=== PATIENT | female | born 1965 | race Two or more races ===

== ENCOUNTER 2018-03-11 20:59 | Emergency (ER) | payer OTHER ==
[~2018-03-11] VITALS: Ht 167.6 cm; Wt 65.8 kg
[~2018-03-11 20:59] MED LIST: AMBIEN5 MG; BENADRYL25 MG PO; CLARITIN10 M1; EFFEXOR XR150 MG; KEFLEX500 MG; MEDROLPACK PO; PNEU16DI2; TENORMIN25 MG PO; XANAX XR0.5 MG PO; ZOLOFT50 MG PO; ZYRTEC10 M3 PO
== END 2018-03-11 22:52 | disposition home or self-care (01) ==
LOC: ER 20:59
DX: I16.0 Hypertensive urgency (principal); I10 Essential (primary) hypertension

== ENCOUNTER 2018-06-16 10:38 | Emergency (ER) | payer OTHER ==
[~2018-06-16] VITALS: Ht 167.6 cm; Wt 74.8 kg
[2018-06-16] MEDS ORDERED: TRINTELLIX10 MG (11:52)
== END 2018-06-16 15:02 | disposition home or self-care (01) ==
LOC: ER 10:38
DX: R42 Dizziness and giddiness (principal); M54.2 Cervicalgia

== ENCOUNTER 2024-04-01 05:48 | Day surgery (SDC) | payer OTHER ==
[2024-03-26 09:40] VITALS: BP 129/76
[2024-03-26 09:41] LABS: HEMATOCRIT 43.6 % (36.0-45.00); HEMOGLOBIN 14.6 g/dL (12.0-15.00); MEAN CELL VOLUME 91.4 fL (80.00-100.00); MEAN CORPUSCULAR HEMOGLOBIN 30.5 pg (27.00-32.0); MEAN CORPUSCULAR HGB CONC 33.4 g/dl (32.0-36.0); PLATELET COUNT 298 K/uL (150-450); RED BLOOD COUNT 4.77 M/uL (4.00-6.00); RED CELL DISTRIBUTION WIDTH 12.5 % (11.5-14.5)
[2024-03-26 09:42] LABS: URINE APPEARANCE Clear; URINE BILIRRUBIN Negative (NEGATIVE); URINE BLOOD Negative; URINE COLOR Yellow; URINE GLUCOSE Negative (NEGATIVE); URINE KETONE Negative (NEGATIVE); URINE LEUKOCYTE Negative; URINE NITRATE Negative; URINE PROTEIN Negative (NEGATIVE); URINE UROBILINOGEN 0.2 E.U./dl
[2024-03-26 09:43] LABS: URINE BACTERIA 662.7 uL (0.0-1933); URINE EPITHELIAL CELLS 3.2 uL (0.0-38.8); URINE RBC 11.9 uL (0.0-20.8); URINE WBC 5.5 uL (0.0-23.2)
[2024-03-26 10:00] LABS: PARTIAL THROMBOPLASTIN TIME 25.6 SECONDS (22.0-34.0); PROTHROMBIN TIME 10.9 SECONDS (9.0-11.5)
[2024-03-26 10:31] LABS: ALBUMIN 3.9 gm/dL (3.4-5.0); BILIRUBIN TOTAL 0.66 mg/dL (0.3-1.2); CALCIUM 9.5 mg/dL (8.5-10.1); CREATININE SERUM 0.58 mg/dL (0.55-1.02); GFR 107.54; GLOBULINA 3.2 G/DL (2.4-3.5); POTASSIUM 4.39 mEq/L (3.5-5.1); TOTAL PROTEIN 7.1 gm/dL (6.4-8.2)
[~2024-04-01] VITALS: Ht 167.6 cm; Wt 65.8 kg
[~2024-04-01 05:48] MED LIST changes: +TRINTELLIX10 MG
[2024-04-01] MEDS ORDERED: VANCOMYCIN HCL 1,000 MG VIAL IV ONE (12:45)
== END 2024-04-01 17:45 | disposition home or self-care (01) ==
LOC: CIR.AMB 05:48
PROVIDERS: ATTEND Obstetrics & Gynecology Gynecology
DX: N93.8 Other specified abnormal uterine and vaginal bleeding (principal); N39.3 Stress incontinence (female) (male)

== ENCOUNTER 2024-04-08 05:50 | Day surgery (SDC) | payer OTHER ==
[2024-04-08] MEDS ORDERED: VANCOMYCIN HCL 1,000 MG VIAL IV SCH (07:00)
[2024-04-08] MEDS ORDERED: MACROBID 100 M100 MG PO (10:37)
[2024-04-08] MEDS ORDERED: TRAM1TAB98 PO (10:38)
== END 2024-04-08 15:45 | disposition home or self-care (01) ==
LOC: CIR.AMB 05:50
PROVIDERS: ATTEND Obstetrics & Gynecology Gynecology
DX: N39.3 Stress incontinence (female) (male) (principal); Z88.6 Allergy status to analgesic agent; Z88.8 Allergy status to other drugs, medicaments and biological substances
CPT/HCPCS: 57288; C1771

== ENCOUNTER → 2025-04-25 | Emergency (ER) | payer OTHER ==
[~2025-04-25] VITALS: Ht 167.6 cm; Wt 70.3 kg
[~2025-04-25] MED LIST changes: +DEXAMETHASONE SODIUM PHOSPHATE 4 MG/ML VIAL IM ONE; +DICLOFENAC SODI75 MG PO; +KETOROLAC TROMETHAMINE 30 MG VIAL IM ONE; +MACROBID 100 M100 MG PO; +TAPAZOLE5 MG PO; +TRAM1TAB98 PO; +TRINTELLIX20 MG PO; +XANAX1 MG PO
== END | disposition home or self-care (01) ==
LOC: ER 10:34
DX: M25.531 Pain in right wrist (principal); M25.561 Pain in right knee; M79.641 Pain in right hand; E05.90 Thyrotoxicosis, unspecified without thyrotoxic crisis or storm; Z88.8 Allergy status to other drugs, medicaments and biological substances